=== PATIENT | female | born 1965 | race Two or more races ===

== ENCOUNTER 2017-03-18 11:03 | Emergency (ER) | END 2017-03-18 14:35 | disposition home or self-care (01) | DX: R05 Cough (principal); H00.12 Chalazion right lower eyelid; K12.0 Recurrent oral aphthae; J45.909 Unspecified asthma, uncomplicated | CPT/HCPCS: 87206; Z7502 ==

== ENCOUNTER 2017-07-16 14:30 | Emergency (ER) | END 2017-07-16 17:49 | disposition home or self-care (01) ==